=== PATIENT | male | born 1975 | race Caucasian/White ===

== ENCOUNTER 2017-01-05 09:05 | Day surgery (SDC) | payer MEDICARE, OTHER ==
[~2017-01-05 09:05] MED LIST: FENTANYL 250 MCG/5 ML AMP IV PRN; LACTATED RINGERS 1,000 ML IV SCH; MIDAZOLAM HCL 5 MG/5 ML VIAL IV PRN
[2017-01-05] MEDS ORDERED: IV START KIT ONE (09:51)
== END 2017-01-05 11:39 | disposition home or self-care (01) ==
LOC: SDC 09:05
PROVIDERS: ATTEND Internal Medicine Gastroenterology
PROC: 0DJD8ZZ Inspection of Lower Intestinal Tract, Via Natural or Artificial Opening Endoscopic (ICD-10-PCS; principal; 2017-01-05)
DX: K64.3 Fourth degree hemorrhoids (principal); M79.1 Myalgia; G89.29 Other chronic pain
CPT/HCPCS: 45378; J3010; J2250; J7120